=== PATIENT | female | born 1995 | race Caucasian/White ===

== ENCOUNTER 2023-10-16 15:42 | Emergency (ER) | payer MEDICAID, SELFPAY ==
--- NOTE | ~2023-10-16 | CT_ITS ---
CT abdomen pelvis w con Ordering provider: Martha Santiago History: . abdominal pain . Comparison: None. Technique: CT abdomen with IV and without oral contrast. Radiation reduction technique utilized. DLP is 577.12mGy. Findings: VISUALIZED LOWER CHEST: Normal. UPPER ABDOMINAL ORGANS: Liver: Normal. Gallbladder: Status post cholecystectomy. Spleen: Normal. Stomach/duodenum: Normal. Pancreas: Normal. Adrenals: Normal. Kidneys: Tiny stone in the left kidney midpole. Urinary bladder: Underfilled. Uterus: Normal. Left ovarian cyst is seen measuring 2.3 cm. VISUALIZED BOWEL AND MESENTERY: No evidence of diverticulitis. Normal appendix. The bowel is otherwis e normal. No free air or free fluid. No mesenteric lymphadenopathy. RETROPERITONEUM: Normal aorta. No retroperitoneal lymphadenopathy. MUSCULOSKELETAL: The superficial soft tissues are normal. Normal spine. IMPRESSION: No acute abdominal process with no evidence of appendicitis, diverticulitis or intestinal obstruction . Left ovarian cyst. Reviewed, dictated and finalized at location A. IMPRESSION: No acute abdominal process with no evidence of appendicitis, diverticulitis or intestinal obstruction. Left ovarian cyst.
[2023-10-16 15:43] VITALS: BP 110/71; PULSE 79; RESP 14; TEMP 37.2; O2SAT 99
--- NOTE | 2023-10-16 16:52 | ED.GENADULT ---
HPI - General Adult General Chief complaint: Abdominal Pain <Martha Santiago, CLIP WRAPPER - Last Filed: 10/16/23 19:47> Stated complaint: abd pain <Martha Desir August, CLIP WRAPPER - Last Filed: 10/16/23 19:47> Time Seen by Provider: 10/16/23 16:52 <Martha Desir August CLIP WRAPPER - Last Filed: 10/16/23 19:47> Focused HPI: Pro Patel is a 28 y/o female who presents with reports feeling that her whole abdomen is twisting and cramping , she states that it started this morning. She states the pain is constant but waves of worsening severity. Hx of diverticulosis. + Nausea but no vomiting Yesterday BM was normal today felt the urge but then couldn't go and it caused her more pain to go Reports she feels that she might be retaining urine She has the Nexplanon GENERAL: Well-appearing, well-nourished, and in no acute distress. HEAD: Normocephalic, atraumatic. CHEST: Clear to auscultation. ?No respiratory distress. HEART: Regular rate and rhythm.? NEURO: ?Alert and oriented x3. Patient screened in triage and initial orders placed.? ?Additional care and disposition to be based upon?diagnostic testing and treatment. <Martha Desir August, CLIP WRAPPER - Last Filed: 10/16/23 19:47> History of Present Illness HPI narrative: Patient 8:00 p.m. female who presents emergency department chief complaint of abdominal pain and cramping. Patient reports she has had episodes before in the past reports she has history of diverticulitis patient states that it feels lower bowels or twisting the patient reports that she had a bowel movement yesterday reports that she has the Nexplanon reports that she has had a prior cholecystectomy <Chacho Vaughn MD - Last Filed: 10/16/23 18:09> Related Data Allergies/adverse reactions: Allergies Allergy/AdvReac Type Severity Reaction Status Date / Time Sulfa (Sulfonamide Allergy Rash Verified 10/16/23 15:45 Antibiotics) <Martha Desir August, CLIP WRAPPER - Last Filed: 10/16/23 19:47> Review of Systems Review of Systems: A 10 system review of systems was completed on the patient and is negative except for what is stated in the HPI. Nursing and ancillary documentation was reviewed. <Chacho Vaughn MD - Last Filed: 10/16/23 18:09> Exam Narrative: GENERAL: Well-appearing, well-nourished, and in no acute distress. HEAD: Normocephalic, atraumatic. EYES: PERRLA and EOMI. ENT: Nares clear, no rhinorrhea or epistaxis. Mucous membranes moist. NECK: Supple. CHEST: Clear to auscultation. No respiratory distress. HEART: Regular rate and rhythm. No murmur heard. Normal peripheral pulses. ABDOMEN: Soft, diffusely tender to palpation, nondistended, normal active bowel sounds. EXTREMITIES: Normal range of motion. No edema. SKIN: Warm, dry, no rash. NEURO: No focal deficits. Alert and oriented x3. PSYCH: Normal mood and affect. <Chacho Vaughn MD - Last Filed: 10/16/23 18:09> Course Vital Signs Vital signs: Vital Signs Temperature 37.2 C 10/16/23 15:43 Pulse Rate 79 10/16/23 15:43 Respiratory Rate 14 10/16/23 15:43 Blood Pressure 110/71 10/16/23 15:43 Pulse Oximetry 99 10/16/23 15:43 Temperature 37.2 C 10/16/23 15:43 Pulse Rate 67 10/16/23 17:48 Respiratory Rate 18 10/16/23 17:48 Blood Pressure 115/66 10/16/23 17:48 Pulse Oximetry 97 10/16/23 17:48 <Martha Santiago APRN - Last Filed: 10/16/23 19:47> Vital Signs Temperature 37.2 C 10/16/23 15:43 Pulse Rate 79 10/16/23 15:43 Respiratory Rate 14 10/16/23 15:43 Blood Pressure 110/71 10/16/23 15:43 Pulse Oximetry 99 10/16/23 15:43 Temperature 37.2 C 10/16/23 15:43 Pulse Rate 67 10/16/23 17:48 Respiratory Rate 18 10/16/23 17:48 Blood Pressure 115/66 10/16/23 17:48 Pulse Oximetry 97 10/16/23 17:48 <Chacho Vaughn MD - Last Filed: 10/16/23 18:09> Medical Decision Making MDM Narrative Medical decision making narrative: Klarissaa
[2023-10-16 17:21] LABS: Basophils Percent Auto 0.3 % (0.2-1.2); Eosinophils Percent Auto 0.5 % (0-4.4); Hemoglobin 13.1 g/dL (12.0-15.0); Immature Granulocyte Absolute 0.01 K/mm3 (0.00-0.031); Immature Granulocyte Percent A 0.2 % (0-0.5); Lymphocytes Absolute Auto 2.07 K/mm3 (0.9-3.2); Lymphocytes Percent Auto 35.3 % (18.3-44.2); Mean Corpuscular HGB Conc 33.6 g/dl (32-36); Mean Corpuscular Hemoglobin 32.5 pg (26-34); Mean Corpuscular Volume 96.8 fl (80-100); Mean Platelet Volume 10.4 fl (7.4-10.4); Monocytes Absolute Auto 0.4 K/mm3 (0.1-0.6); Monocytes Percent Auto 6.7 % (2.6-8.5); Neutrophils Absolute Auto 3.3 K/mm3 (1.3-6.7); Platelet Count Result 286 k/mm3 (150-375); Red Blood Count 4.03 M/mm3 (4.2-5.4); White Blood Count 5.9 K/mm3 (4.5-10.0)
[2023-10-16 17:29] LABS: Appearance Urine Clear (Clear); Bilirubin Urine Negative (Negative); Blood Urine Negative (Negative); Color Urine Yellow (Yellow); Glucose Urine UA Negative (Negative); Ketones Urine Trace mg/dL (Negative); Leukocyte Esterase Ur Negative LEU/UL (Negative); Nitrate Urine Negative (Negative); Protein Urine Negative (Negative); Specific Grav Ur 1.023 (1.001-1.035)
[2023-10-16 17:31] LABS: Alanine Aminotransferase 21 U/L (6-35); Albumin Level 4.9 g/dL (3.5-5.1); Alkaline Phosphatase 59 U/L (38-126); Anion Gap 8 mmol/L (4-12); Aspartate Amino Transferase 27 U/L (14-36); Bilirubin,Total 0.4 mg/dL (0.2-1.3); Blood Urea Nitrogen 10 mg/dL (7-17); Calcium 9.5 mg/dL (8.4-10.2); Carbon Dioxide 25 mmol/L (22-30); Chloride 108 mmol/L (98-107); Estimated CRCL calculation 95 ml/min; Estimated Glomerular Filt Rate > 60; Glucose 84 mg/dL (65-110); Lipase 92 U/L (23-300); Potassium 3.9 mmol/L (3.4-5.0); Sodium 141 mmol/L (137-145)
[2023-10-16 17:40] LABS: Add Urine Microscopic? NO
[2023-10-16] MEDS: KETOROLAC 30 MG/ML VIAL (*BKC) IV PUSH (17:44)
[2023-10-16] MEDS: ONDANSETRON INJ 4 MG/2 ML VIAL IV PUSH (17:44)
[2023-10-16] MEDS: FAMOTIDINE 20 MG/2 ML VIAL IV PUSH (17:44)
[2023-10-16 17:48] VITALS: BP 115/66; PULSE 67; RESP 18; O2SAT 97
[2023-10-16] MEDS: DICYCLOMINE HCL INJ 20 MG/2 ML VIAL IM (18:12)
[2023-10-18 11:37] LABS: Estimated CRCL calculation 85 ml/min; Estimated Glomerular Filt Rate > 60
== END 2023-10-16 18:18 | disposition home or self-care (01) ==
LOC: ANHED 18:20
PROVIDERS: Nurse Practitioner Family; Emergency Provider Emergency Medicine
DX: N83.202 Unspecified ovarian cyst, left side (principal); R10.9 Unspecified abdominal pain
CPT/HCPCS: 36415; 74177; 80053; 81003; 81025; 82565; 83690; 85025; 96374; 96375; 99284; J0500; J1885; J2405; Q9967